=== PATIENT | male | born 1950 | race African-American/Black ===

== ENCOUNTER → 2018-02-13 | Outpatient (CLI) | payer MEDICARE, BC ==
--- NOTE | 2018-02-13 14:53 | Diagnostic Imaging Report ---
PROCEDURE:X-RAY MODIFIED BARIUM SWALLOW COMPARISON:None. INDICATIONS:Not provided. DISCUSSION:Fluoroscopic examination was performed in conjunction with speech pathology, during swallowing of a variety of thin and thick liquid consistencies. Examination shows normal oral phase. No penetration or aspiration was noted. Minimal piriform sinus and base of tongue residue is noted. CONCLUSION:No penetration or aspiration. Please see the report from speech pathology for complete details. Rodríguez Rodrigues M.D. Dictated by: Rodríguez Rodrigues M.D. on 02/13/2018 at 14:07 Electronically approved by: Rodríguez Rodrigues M.D. on 02/13/2018 at 14:07
== END ==
LOC: DX 11:23
PROVIDERS: ATTEND Psychiatry & Neurology Clinical Neurophysiology
DX: R13.12 Dysphagia, oropharyngeal phase (principal); G20 Parkinson's disease; F02.80 Dementia in other diseases classified elsewhere, unspecified severity, without behavioral disturbance, psychotic disturbance, mood disturbance, and anxiety; G25.0 Essential tremor
CPT/HCPCS: 74230; 92611; G8996; G8997; G8998

== ENCOUNTER 2018-03-27 09:53 | Outpatient (RCR) | payer MEDICARE, BC | END 2018-03-30 | LOC: ST 09:53 | PROVIDERS: ATTEND Psychiatry & Neurology Clinical Neurophysiology | DX: R13.13 Dysphagia, pharyngeal phase (principal); G20 Parkinson's disease | CPT/HCPCS: 92507 ×4; 92523; G9168; G9169 ==

== ENCOUNTER 2018-04-23 09:49 | Outpatient (RCR) | payer MEDICARE, BC | END 2018-04-29 | LOC: ST 09:49 | PROVIDERS: ATTEND Psychiatry & Neurology Clinical Neurophysiology | DX: G20 Parkinson's disease (principal); R47.01 Aphasia; R41.89 Other symptoms and signs involving cognitive functions and awareness | CPT/HCPCS: 92507 ×2; G9168; G9169 ==

== ENCOUNTER → 2018-05-30 | Outpatient (RCR) | payer MEDICARE, BC | LOC: ST 05-21 10:57 | PROVIDERS: ATTEND Psychiatry & Neurology Clinical Neurophysiology | DX: G20 Parkinson's disease (principal); R47.01 Aphasia | CPT/HCPCS: 92507 ×5; G9168; G9169 ==

== ENCOUNTER 2018-06-13 11:00 | Outpatient (RCR) | payer MEDICARE, BC | END 2018-06-29 | LOC: ST 11:00 | PROVIDERS: ATTEND Psychiatry & Neurology Clinical Neurophysiology | DX: G20 Parkinson's disease (principal); R47.01 Aphasia; R41.89 Other symptoms and signs involving cognitive functions and awareness ==

== ENCOUNTER → 2019-02-26 | Outpatient (CLI) | payer MEDICARE, BC ==
--- NOTE | 2019-02-26 15:35 | Diagnostic Imaging Report ---
PROCEDURE: X-RAY MODIFIED BARIUM SWALLOW COMPARISON: None. INDICATION: Parkinson's disease, dysphagia Radiation Details: Fluoroscopy time: 2.5 minutes Cumulative dose: 11.0 mGy DISCUSSION: Fluoroscopic examination was performed in conjunction with speech pathology during swallowing a variety of thin and thick liquid consistencies. Provided images demonstrate laryngeal penetration to the level of the vocal cords with thin liquids only and only when fatigued. Consistent silent microaspiration during cup and straw swallows of thin liquids. This occurred 10 minutes into the exam when the patient became fatigued. CONCLUSION: Modified barium swallow demonstrating laryngeal penetration and aspiration with thin liquids after fatigue as above. Please refer to the speech pathology report for further details. Signed by: Sina Benoit MD on 02/26/2019 3:32 PM
== END ==
LOC: DX 09:59
PROVIDERS: ATTEND Psychiatry & Neurology Clinical Neurophysiology
DX: R13.11 Dysphagia, oral phase (principal); G20 Parkinson's disease
CPT/HCPCS: 74230

== ENCOUNTER 2019-03-19 10:46 | Outpatient (RCR) | payer MEDICARE, BC ==
--- NOTE | 2019-03-11 14:15 | NUR ---
Patient Name: Luana MonroyDOB: 04/18/1951 Age/Sex: 68/maleOrdering Physician: Eva Rubalcava MD Clinical Swallow Evaluation/Initial Treatment Session Patient is a 68 year old male with diagnosis of oral dysphagia. Pt's spouse reported that pt's diagnosis has recently been changed to Supranuclear Palsy by Dr. Fuchs, neurologist/movement disorder specialist with [facility]. Ms. Monroy reported that pt is noted to drool occasionally but more often when he is eating/drinking. He also frequently holds food and/or liquids in his mouth and seems to have a "different way of chewing." Ms. Monroy denies any coughing or choking with meals but agreed that pt clears his throat quite frequently. No recent h/o PNA, URI, or bronchitis. Patient completed a modified barium swallow (MBS) study on 02/26/2019. Pt presented with mild oral dysphagia c/b munch chew pattern rather than rotary chew, decreased A-P transit of the bolus, and intermittent holding of the bolus in the oral cavity. pt presented with mild pharyngeal dysphagia c/b consistent premature spillage to the level of the pyriform sinus, consistent microaspiration of thin liquids when pt fatigued (after 10 minutes), and consistent pharyngeal residue after the swallow. Dysphagia was judged to be secondary to decreased hyolaryngeal excursion, decreased pharyngeal constriction during the swallow, and decreased coordination of the swallow. Recommendation was made for dysphagia therapy to increase strength and coordination of swallow. Patient was seen today in the outpatient clinic for initial treatment of Neuromuscular Electrical Stimulation (NMES) with VitalStim Therapy and traditional dysphagia therapy with pharyngeal exercises. Pt was seen with spouse present. Oral motor exam revealed slow oral motor movement, reduced agility, strength, delayed reaction time. Patient tolerates room air. Hearing appeared to be WFL. Speech and language skills were delayed, echolalia present. Provided extensive education re: need for therapy, purpose of exercises and NMES, and future plan of care. Pt indicated understanding. Pt was given water and he refused hard candy. Pt was instructed to take small sips and swallow hard, feeling all the muscles in her throat contract. Placement 3b was used to target the mylohyoid muscle, the anterior belly of the digastric muscle, the sternohyoid muscle, the omohyoid muscle, the geniohyoid muscle, and the middle pharyngeal constrictors. Channel 1 of the electrodes was aligned horizontally just above the hyoid bone and channel 2 of the electrodes was aligned horizontally at the level of the thyroid notch. This placement was used to improve base of tongue strength, pharyngeal constriction, and UES function. Pt initially tolerated 6.0 mA, but as the session progressed pt tolerated 16.0 mA. Pt received 50 minutes of stimulation. Cough noted X 4, throat clear X 4 and pts eyes watered and his nose ran the majority of the session. During NMES an exercise program was presented, demonstrated, and discussed. Pt unable to complete the exercises, however is able to produce extended phonation for upward of 15 second average. A home program was assigned. Pt verbalized understanding of the home exercise program. Education provided as indicated. All questions were answered. Pt/spouse indicated that attending therapy 3x/week would be convenient Impressions: Pt tolerated initial session of NMES well. He continues to report and demonstrate s/s of aspiration during meals which significantly interferes with his quality of life. Pt is an excellent candidate for dysphagia exercises and NMES for improvement of strength and coordination of swallow. Recommendations: 1.Dysphagia therapy to include traditional exercises and NMES 2X/week for 6 weeks for a total of 12 treatment sessions 2.Home exercise program 3.Repeat MBS in 4-6 weeks with new goals to be determined at that time Senior Security Architect Goal: Pt will tolerate least restrictive diet without s/s of aspiration as judged by an objective evaluation. Short Term Goals: 1.Pt will complete 3 repetitions of a set of dysphagia exercises to improve laryngeal elevation, base of tongue retraction, and laryngeal closure, 10 repetitions per exercise, with minimal cues. 2.Pt will tolerate NMES for 45 60 minutes with no clinical s/s of aspiration to improve strength of pharyngeal constrictors, hyolaryngeal excursion, and safety with po intake. 3.Pt will complete home dysphagia exercise program targeting laryngeal elevation, base of tongue strength, and cricopharyngeal function independently. 4.Pt will follow aspiration precautions with independence. 5.Pt will participate in a repeat Modified Barium Swallow study to objectively re-assess swallow safety and function and determine safest diet. Florecita Duvall M.S. CCC-AUTOMATION DESIGN ENGINEER Date of Session: 03/11/19 Dysphagia Evaluation and Treatment X 60 minutes Physicians signature below certifies medical necessity for these skilled interventions Physician Signature Date NOMS Rating for Swallowing: Level 5
--- NOTE | 2019-03-25 11:22 | NUR ---
ST NOTE: Pt no show, next apt 03/28
== END 2019-03-30 ==
LOC: ST 10:46
PROVIDERS: ATTEND Psychiatry & Neurology Clinical Neurophysiology
DX: R13.11 Dysphagia, oral phase (principal); R13.13 Dysphagia, pharyngeal phase; G20 Parkinson's disease

== ENCOUNTER 2019-04-17 10:56 | Outpatient (RCR) | payer MEDICARE, BC | END 2019-04-29 | LOC: ST 10:56 | PROVIDERS: ATTEND Psychiatry & Neurology Clinical Neurophysiology | DX: R13.13 Dysphagia, pharyngeal phase (principal) ==

== ENCOUNTER → 2019-05-01 | Outpatient (CLI) | payer MEDICARE, BC ==
--- NOTE | 2019-05-03 08:48 | Diagnostic Imaging Report ---
PROCEDURE: X-RAY MODIFIED BARIUM SWALLOW COMPARISON: Modified barium swallow 02/26/2019 INDICATION: Parkinson's disease, dysphagia Radiation Details: Fluoroscopy time: 2.7 minutes Cumulative dose: 14.1 mGy DISCUSSION: Fluoroscopic examination was performed in conjunction with speech pathology during swallowing a variety of thin and thick liquid consistencies. Provided images demonstrate laryngeal penetration and one episode of silent aspiration. CONCLUSION: Modified barium swallow demonstrating laryngeal penetration and one episode of silent aspiration. Please refer to the speech pathology report for further details. Signed by: Sina Benoit MD on 05/03/2019 8:45 AM
== END ==
LOC: DX 12:51
PROVIDERS: ATTEND Psychiatry & Neurology Clinical Neurophysiology
DX: R13.11 Dysphagia, oral phase (principal); G20 Parkinson's disease
CPT/HCPCS: 74230

== ENCOUNTER → 2019-05-30 | Outpatient (RCR) | payer MEDICARE, BC ==
--- NOTE | 2019-05-13 11:29 | NUR ---
ST NOTE: Pt no show for therapy session today, next apt 05/16/19
--- NOTE | 2019-05-30 11:25 | NUR ---
Patient Name: Luana Monroy Jr.: 54 Age/Sex: 68/maleOrdering Physician: Eva Acosta MD Clinical Swallow Re-Evaluation Patient is a 68 year old male with diagnosis of Patient is a 68 year old male with diagnosis of oral dysphagia. Patient completed a modified barium swallow (MBS) study on 02/26/2019. Pt presented with mild oral dysphagia c/b munch chew pattern rather than rotary chew, decreased A-P transit of the bolus, and intermittent holding of the bolus in the oral cavity. Pt presented with mild pharyngeal dysphagia c/b consistent premature spillage to the level of the pyriform sinus, consistent micro-aspiration of thin liquids when pt fatigued (after 10 minutes), and consistent pharyngeal residue after the swallow. Dysphagia was judged to be secondary to decreased hyolaryngeal excursion, decreased pharyngeal constriction during the swallow, and decreased coordination of the swallow. MBS completed on 05/01/19 resulted mild oral dysphagia c/b prolonged transit of the bolus and intermittent holding of the bolus in the oral cavity. Pt presented with mild pharyngeal dysphagia c/b consistent premature spillage to the level of the pyriform sinus, infrequent aspiration of thin liquids during serial sips of thin liquids, and consistent pharyngeal residue after the swallow. Dysphagia was judged to be secondary to decreased hyolaryngeal excursion, decreased pharyngeal constriction during the swallow, and decreased coordination of the swallow. This is an improvement from the exam completed 02/26/19 in that pt no longer consistenly aspirates cup sips of thin liquids and that fatigue no longer is a factor. It is judged that pt will continue to receive benefit from dysphagia therapy to improve pharyngeal constriction and eliminate aspiration of thin liquids during serial sips. Recommendation was made for dysphagia therapy to increase strength and coordination of swallow. Patient attended remaining 7 recommended therapy sessions with of Neuromuscular Electrical Stimulation (NMES) with VitalStim Therapy and traditional dysphagia therapy with pharyngeal exercises. Pt was seen with no family present. Oral motor exam revealed function that was moderately reduced in agility, strength and ROM. Patient tolerated room air. Hearing appeared to be WFL. Patients spouse reported mild change in his swallow skills since the modified barium swallow study. Pt confirmed that pt continues to choke and cough during meal times. 1.Pt will complete 3 repetitions of a set of dysphagia exercises to improve laryngeal elevation, base of tongue retraction, and laryngeal closure, 10 repetitions per exercise, with minimal cuespt unable to complete exercises secondary to current diagnosis. 2.Pt will tolerate NMES for 45 60 minutes with no clinical s/s of aspiration to improve strength of pharyngeal constrictors, hyolaryngeal excursion, and safety with po intakept tolerated 55 minutes of NMES with thin liquid and hard candy at a max of 25.0 mA. Placement 2b was used to target the anterior belly of the digastric muscle, the sternohyoid muscle, the omohyoid muscle, the thyrohyoid muscle, the geniohyoid muscle, the hypoglossal nerve, and the superior laryngeal nerve. Channel 1 and channel 2 of the electrodes were aligned vertically on either side of midline with the top electrode just above the hyoid bone and the bottom electrode at the level of the thyroid notch. This placement was used to improve hyolaryngeal excursion and UES function. Cough was noted X 0, throat clear X 0. 3.Pt will complete home dysphagia exercise program targeting laryngeal elevation, base of tongue strength, and cricopharyngeal function independentlypt unable to complete HEP at home secondary to current diagnosis 4.Pt will follow aspiration precautions with independencept reported following aspiration precautions with supervision. 5.Pt will participate in a repeat Modified Barium Swallow study to objectively re-assess swallow safety and function and determine safest dietnot yet scheduled. Impressions: Pt tolerates treatment well and spouse reports less coughing and choking with meals. However, he continues to report and demonstrate s/s of aspiration during meals which significantly interferes with his quality of life. Continued treatment is recommended to complete the recommended 12 sessions of therapy. Recommendations: 1.Dysphagia therapy to include traditional exercises and NMES 2X/week for 4 weeks 2.Home exercise program 3.Repeat MBS in 4 weeks with new goals to be determined at that time Correction Goal: Pt will tolerate least restrictive diet without s/s of aspiration as judged by an objective evaluation. Short Term Goals: 1.Pt will complete 3 repetitions of a set of dysphagia exercises to improve laryngeal elevation, base of tongue retraction, and laryngeal closure, 10 repetitions per exercise, with minimal cues. 2.Pt will tolerate NMES for 45 60 minutes with no clinical s/s of aspiration to improve strength of pharyngeal constrictors, hyolaryngeal excursion, and safety with po intake. 3.Pt will complete home dysphagia exercise program targeting laryngeal elevation, base of tongue strength, and cricopharyngeal function independently. 4.Pt will follow aspiration precautions with independence. 5.Pt will participate in a repeat Modified Barium Swallow study to objectively re-assess swallow safety and function and determine safest diet. Florecita Duvall M.S. CCC-MUD GRINDER Date of Session: 05/30/19 Dysphagia Re-Evaluation X 55 minutes Physicians signature below certifies medical necessity for these skilled interventions Physician SignatureDate NOMS Rating for Swallowing: Level 6
== END ==
LOC: ST 05-09 13:19
PROVIDERS: ATTEND Psychiatry & Neurology Clinical Neurophysiology
DX: R13.11 Dysphagia, oral phase (principal)

== ENCOUNTER 2019-06-18 10:58 | Outpatient (RCR) | payer MEDICARE, BC | END 2019-06-29 | LOC: ST 10:58 | PROVIDERS: ATTEND Psychiatry & Neurology Clinical Neurophysiology | DX: R13.11 Dysphagia, oral phase (principal); R13.13 Dysphagia, pharyngeal phase ==

== ENCOUNTER → 2019-07-02 | Outpatient (CLI) | payer MEDICARE, BC ==
--- NOTE | 2019-07-02 12:48 | Diagnostic Imaging Report ---
Modified Barium Swallow History: Dysphagia Comparison: None Fluoroscopic time: 1.85 minutes Dose (DANIKA): 1.26 ,Gy Technique: Modified barium swallow was performed in conjunction with speech pathology. Please see separate report for further details. The patient was fed various consistencies of barium under real time fluoroscopic observation. One episode of silent aspiration was noted after multiple sips of thin liquids. Impression: Modified barium swallow as described above. Signed by: Dr. Nitish Francois MD on 07/02/2019 12:45 PM
== END ==
LOC: DX 10:43
PROVIDERS: ATTEND Psychiatry & Neurology Clinical Neurophysiology
DX: R13.11 Dysphagia, oral phase (principal); R13.13 Dysphagia, pharyngeal phase
CPT/HCPCS: 74230

== ENCOUNTER → 2019-11-27 | Outpatient (CLI) | payer MEDICARE, BC | LOC: DX 09:59 | PROVIDERS: ATTEND Psychiatry & Neurology Clinical Neurophysiology | DX: R13.12 Dysphagia, oropharyngeal phase (principal) | CPT/HCPCS: 74230 ==